=== PATIENT | female | born 1965 | race African-American/Black ===

== ENCOUNTER 2021-01-02 15:47 | Emergency (ER) | payer SELFPAY ==
[~2021-01-02] VITALS: Ht 170.2 cm; Wt 85.9 kg
[2021-01-02 16:52] VITALS: BP 162/97
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
[2021-01-02] MEDS ORDERED: IBUP-1007 PO (18:15)
[2021-01-02] MEDS ORDERED: HYDR-2761 PO (18:15)
[2021-01-02] MEDS ORDERED: CYCL5TAB PO (18:15)
== END 2021-01-02 18:30 | disposition home or self-care (01) ==
LOC: ER 15:47
DX: M54.2 Cervicalgia (principal); M54.5 Low back pain; M54.6 Pain in thoracic spine; F41.9 Anxiety disorder, unspecified; F32.9 Major depressive disorder, single episode, unspecified; E11.9 Type 2 diabetes mellitus without complications; I10 Essential (primary) hypertension; V89.2XXA Person injured in unspecified motor-vehicle accident, traffic, initial encounter; Y93.89 Activity, other specified; Y92.89 Other specified places as the place of occurrence of the external cause; Y99.8 Other external cause status
CPT/HCPCS: 70450; 72072; 72110; 72125; 99285